=== PATIENT | female | born 1975 | race Caucasian/White ===

== ENCOUNTER 2020-08-10 18:04 | Emergency (ER) | payer SELFPAY ==
[2020-08-10] VITALS (7 sets, daily range): BP systolic 131–159; BP diastolic 94–123; PULSE 81–103; RESP 14–19; TEMP 36.6; O2SAT 96–100; BMI 31.2
--- NOTE | 2020-08-10 18:10 | XR_ITS ---
WS: [id number] Portable AP upright chest, 08/10/2020 Clinical Data: COUGH Comparison: PA and lateral chest, 07/02/2012. Findings: No nodules, masses or effusions are seen. The heart is normal. The pulmonary vascularity is not increased. No pneumonia or pneumothorax is seen. XR/XR chest 1V portable [id number] Impression: Negative chest.
--- NOTE | 2020-08-10 18:32 | ECG_ITS ---
[facility] Test Date: 2020-08-10 Pat Name: Martha Hdz Department: Room: Gender: Female [employer] Sh[employer] Helper: : 1975 Requested By: Erin Jones Order Number: [id number] Lopes MD: Cassia Baldwin M.D. Measurements Intervals [place] Rate: 96 P: 65 IL: 137 QRS: 46 QRSD: 85 T: 63 QT: 363 QTc: 459 Interpretive Statements SINUS RHYTHM No previous ECG available for comparison Electronically Signed On 08-11-2020 20:37:14 CDT by Cassia Baldwin M.D. [id number]
--- NOTE | 2020-08-10 18:34 | W.ED.GENADLT ---
HPI - General Adult General: Chief complaint: General Medical Stated complaint: cough *7 months Time Seen by Provider: 08/10/20 18:26 Source: patient Mode of arrival: ambulatory Limitations: no limitations History of Present Illness: HPI narrative: Mrs. Hdz is a very nice 45-year-old female who comes in complaining of cough that is been present for the past 7 months. She states most of the time the cough will be dry but she occasionally coughs up thick yellow mucus with this. She denies any hemoptysis. She has chest pain when she coughs. She states the past 3 months the cough is gotten worse and yesterday she coughed so hard that she dropped her grandson. Patient states that she feels postnasal drainage and her symptoms are worse at night. She denies any fevers or chills. There is been no leg swelling or edema. She denies any leg pain. Patient states at times she will cough so hard and have coughing fits she has little stinging pains in her chest. She otherwise denies any complaints or concerns. Patient denies any chronic past medical history but does admit to long-term ongoing smoking. He is never been told that she has emphysema or COPD. Associated symptoms: Reports dyspnea; Deny chest pain, confusion, diaphoresis, headache(s), malaise, nausea, rash, palpitations, syncope or vomiting Review of Systems Const: Denies: fever(s), chills, body aches, fatigue, malaise or diaphoresis Eyes: Denies: change in vision, blurry vision, photophobia, eye discomfort, eye discharge, eye redness or yellow eyes ENMT: Denies: throat pain, odynophagia, hoarseness, swelling of lips/tongue, ear or mastoid pain, ear discharge, change in hearing or nasal discharge Card: Denies: chest pain, palpitations, irregular heart rhythm, edema, lightheadedness, syncope, pre-syncope, dyspnea on exertion or orthopnea Resp: Reports: dyspnea, productive cough, non-productive cough, wheezing and chest congestion; Denies: hemoptysis GI: Denies: abdominal pain, nausea, vomiting, hematemesis, coffee ground emesis, heartburn, diarrhea, constipation, GI cramping, hematochezia or melena : Denies: flank pain, dysuria, urinary frequency, urinary urgency or hematuria Musc: Denies: neck pain, back pain, extremity pain, extremity swelling, joint pain, joint swelling, joint redness, joint warmth or joint stiffness Skin/Breast: Denies: rash, pruritus, erythema, skin pain or skin tenderness Neuro: Denies: headache(s), numbness in extremities, weakness in extremities, sensory changes, lack of coordination, difficulty walking, dizziness, vertigo, confusion, Slurred speech present or seizure-like activity Rk/Lymph: Denies: easy bruising, easy bleeding, petechiae, purpura or enlarged lymph nodes All/Imm: Denies: urticaria, throat swelling, tongue swelling, facial swelling or acute wheezing PFSH ED PFSH: Medical History (Updated 08/10/20 @ 20:28 by Erin Barrett) No pertinent past medical history Social History (Updated 08/10/20 @ 18:24 by Evan Romero RN) Smoking and tobacco status: light tobacco smoker Alcohol intake: never Physical Exam Const: COMMON NORMALS: no acute distress, patient oriented x3, no limitations and alert GENERAL APPEARANCE: cooperative HENMT: COMMON NORMALS: normocephalic, atraumatic, external ears normal, EAC's normal and Normal external nose present HEAD & SCALP: normal to inspection, normocephalic and atraumatic FACE & SINUS: normal facial exam and face symmetric NOSE: Normal external nose present and Normal nares present EXTERNAL EAR: Yes external ears normal EXTERNAL AUDITORY CANAL: EAC's normal MOUTH: Normal oral and palatal mucosa present, lip normal and tongue normal Eye: COMMON NORMALS: Equal, round and reactive pupils present and conjunctivae normal GENERAL EYE: appearance normal, both eyes and all related structures ALIGNMENT: Yes alignment normal PERIORBITAL: periorbital findings normal EYELID: eyelids normal CONJUNCTIVA: Yes conjunctivae normal SCLERA: sclerae normal PUPIL: Yes Equal, round and reactive pupils present Neck/C-Spine: COMMON NORMALS: full ROM, no lymphadenopathy, supple, no meningeal signs and no JVD GENERAL: Yes normal visual inspection and Yes trachea midline Chest: COMMONS NORMALS: normal inspection of the chest and normal palpation of entire chest wall Resp: COMMON NORMALS: normal respiratory effort, No retractions, No use of accessory muscles and clear to auscultation bilaterally EFFORT & INSPECTION: Yes able to speak in complete sentences and Yes symmetric chest movement AUSCULTATION: clear to auscultation bilaterally, no crackles, no rales, rhonchi and wheezes Cardio: COMMON NORMALS: no JVD, regular rate, regular rhythm, S1 normal heart sound present and S2 normal heart sound present RATE: regular rate RHYTHM: regular rhythm HEART SOUNDS: S1 normal heart sound present, S2 normal heart sound present, no click, no gallops, no murmurs and no rubs GI: COMMON NORMALS: Soft to palpation and No hepatosplenomegaly present PALPATION: Yes Soft to palpation, No Tenderness to palpation present (GI), No Guarding due to palpation present (GI), No Rigid due to palpation, Yes No hepatosplenomegaly present, No Hernia present, No Palpable mass present and No Pulsatile mass present : COMMON NORMALS: Yes no CVA tenderness BLADDER/KIDNEY EXAM: Yes no CVA tenderness EXTERNAL FEMALE EXAM: No Hernia present Back/Pelvis: COMMON NORMALS: no CVA tenderness, thoracic and lumbar spine normal to inspection, no thoracic nor lumbar tenderness and thoraco-lumbar ROM normal Extremity: COMMON NORMALS: normal to inspection, full ROM, capillary refill normal, no joint enlargement, no clubbing, cyanosis or edema and no calf tenderness Neuro: COMMON NORMALS: patient oriented x3, CN's II-XII intact bilaterally, moves all extremities, no focal motor deficits and no sensory deficits noted SENSORIUM/ORIENTATION: Yes alert MENINGEAL SIGNS: Yes no meningeal signs SPEECH: speech normal Psych: COMMON NORMALS: mental status grossly normal, Normal thought process present, cooperative, normal affect, speech normal and activity/motor behavior normal SPEECH: Yes normal speech THOUGHT PROCESS: Normal thought process present Skin: COMMON NORMALS: no rashes or lesions noted, turgor normal, no jaundice, no petechiae and no mottling GENERAL SKIN EXAM: no rashes or lesions noted and turgor normal Course Vital Signs: Vital signs: Vital Signs Temperature 97.9 F 08/10/20 18:18 Pulse Rate 81 08/10/20 20:22 Respiratory Rate 19 H 08/10/20 20:22 Blood Pressure 131/94 08/10/20 20:22 Pulse Oximetry 96 08/10/20 20:22 MDM - General Adult MDM Narrative: Medical decision making narrative: Martha is a nice 45-year-old female who comes in complaining of cough going on for the last 7 months. The last 3 months have been worse that she started smoking again and over the past few days her cough is become much worse. On exam she is wheezing but she is improved with breathing treatments. Chest x-ray suggest a very subtle haziness along the left heart border which could be a lingular pneumonia. Patient is not in distress and she is not hypoxic. I have advised her to stop smoking. She denies having other questions or concerns and agrees to follow-up with Dr. Lynch or establish a primary care doctor here in the area. Patient is really not allergic to penicillins as she is taken multiple rounds of penicillin since she was a child. I will go ahead and start her on Omnicef and doxycycline along with steroids and an inhaler. She agrees to return should her symptoms change or worsen. Lab Data: Labs: Lab Results 08/10/20 08/10/20 08/10/20 Range/Units 18:56 18:56 18:56 WBC 12.6 H (4.0-10.0) 10^3/ uL RBC 5.41 H (4.1-5.3) 10^6/u L Hgb 12.6 (11.5-15.3) g/dL Hct 40.6 (37.0-47.0) % MCV 75.0 L (81-99) fL MCH 23.3 L (28.0-34.0) pg MCHC 31.0 (30.0-36.0) g/dL RDW 17.8 H (12.1-15.1) % Plt Count 337 (130-400) 10^3/c mm MPV 10.1 (7.4-10.4) fL Neut % (Auto) 45.4 % Lymph % (Auto) 44.5 % Scott % (Auto) 7.1 % Eos % (Auto) 2.2 % Baso % (Auto) 0.6 % Neut # (Auto) 5.74 (1.8-7.7) 10^3/u L Lymph # (Auto) 5.6 H (0.8-4.8) 10^3/u L Scott # (Auto) 0.9 (0.2-0.9) 10^3/u L Eos # (Auto) 0.3 (0.0-0.8) 10^3/u L Baso # (Auto) 0.1 (0.0-0.1) 10^3/u L Nucleated RBC % (a uto) 0 % Nucleated RBCs # 0.0 /100WBC Sodium 134 L (136-145) mmol/L Potassium 3.8 (3.5-5.1) mmol/L Chloride 101 (98-107) mmol/L Carbon Dioxide 23 (22-29) mmol/L Anion Gap 13.8 (5-19) BUN 15 (6-20) mg/dL Creatinine 0.9 (0.5-0.9) mg/dL GFR Calculation 67.4 L (90-130) mL/min Glucose 97 (65-115) mg/dL Calculated Osmolal ity 279 L (285-295) mOsm/k g Calcium 9.9 (8.5-10.5) mg/dL Magnesium 2.3 (1.7-2.3) mg/dL Total Bilirubin 0.2 (0.15-1.2) mg/dL AST 15 (0-32) U/L ALT 11 (0-33) U/L Alkaline Phosphata se 72 (35-105) IU/L Troponin T Gen 5 n g/L 6 (0-10) ng/L NT-Pro-B Natriuret Pep 48 (0-125) pg/mL Total Protein 8.0 (6.6-8.7) g/dL Albumin 4.4 (3.5-5.2) g/dL Globulin 3.6 (1.3-4.6) g/dL Imaging Data^: CXR: Attestation: I personally reviewed and interpreted this imaging study as follows: My impression: Possible lingular infiltrate. EKG Data^: EKG 1: Attestation: I personally reviewed and interpreted this EKG as follows: EKG interpretation date: 08/10/20 EKG interpretation time: 19:02 Interpretation: Normal sinus rhythm at 96 beats a minute, normal axis, no blocks, normal intervals, no acute ST or T wave changes. Discharge Plan Discharge Patient Disposition: Home Clinical Impression: Pneumonia Qualifiers: Pneumonia type: due to unspecified organism Laterality: left Lung location: lower lobe of lung Qualified Code(s): J18.9 - Pneumonia, unspecified organism Condition: Stable Prescriptions: New doxycycline hyclate 100 mg capsule 100 mg PO BID 10 Days Qty: 20 RF: 0 prednisone 10 mg tablets,dose pack See Rx Instructions .ROUTE .COMPLEX Qty: 21 RF: 0 Tessalon Perles 100 mg capsule 200 mg PO TID PRN (Reason: cough) Qty: 60 RF: 0 cefdinir 300 mg capsule 300 mg PO Q12H 10 Days Qty: 20 RF: 0 No Action Tylenol PM Extra Strength 25-500 mg Tablet 1 tab PO Q6H PRN (Reason: pain/sleep) RF: 0 Discharge Orders: Discharge Order (Routine); Ordered 08/10/20 Ordered By: Erin Barrett Referrals: Tresa Lynch MD [Physician] - 4-7 days Discharge Diet: Advance as tolerated Discharge Activity: Increase activity as tolerated Patient Instructions: Pneumonia (ED) Activity Restrictions/Additional Instructions: Please return to the ER immediately for any of the signs or symptoms listed on your discharge instruction sheets, worsening/changing of your symptoms, you are not getting better as quickly as expected, or for ANY other cause or concerns. I see no evidence of cancer today but COPD can become disabling. Be certain to follow-up with Dr. Lynch as he may want to do more testing for your chronic ongoing lung problems. Coding Level of Care Code ED Professor Of Physics for [employer] Fwd Exam Comprehensive
[2020-08-10 19:04] LABS: Basophils # 0.1 10^3/uL (0.0-0.1); Basophils % 0.6 %; Eosinophils # 0.3 10^3/uL (0.0-0.8); Eosinophils % 2.2 %; Hematocrit 40.6 % (37.0-47.0); Hemoglobin 12.6 g/dL (11.5-15.3); Lymphocytes # 5.6 10^3/uL (0.8-4.8); Lymphocytes % 44.5 %; Mean Corpuscular Hemoglobin 23.3 pg (28.0-34.0); Mean Platelet Volume 10.1 fL (7.4-10.4); Monocytes # 0.9 10^3/uL (0.2-0.9); Monocytes % 7.1 %; Neutrophils # 5.74 10^3/uL (1.8-7.7); Neutrophils % 45.4 %; Nucleated Red Blood Cells % 0 %; Platelet Count 337 10^3/cmm (130-400); Red Blood Count 5.41 10^6/uL (4.1-5.3); Red Cell Distribution Width 17.8 % (12.1-15.1); White Blood Count 12.6 10^3/uL (4.0-10.0)
[2020-08-10] MEDS: ipratropium-albuterol 3 mL Neb 9 ML INHALATION (19:15)
[2020-08-10 19:23] LABS: Troponin T (5th) Once 6 ng/L (0-10)
[2020-08-10 19:33] LABS: Alanine Aminotransferase 11 U/L (0-33); Albumin Level 4.4 g/dL (3.5-5.2); Alkaline Phosphatase 72 IU/L (35-105); Anion Gap 13.8 (5-19); Aspartate Amino Transferase 15 U/L (0-32); Blood Urea Nitrogen 15 mg/dL (6-20); Calcium 9.9 mg/dL (8.5-10.5); Carbon Dioxide 23 mmol/L (22-29); Chloride 101 mmol/L (98-107); Globulin 3.6 g/dL (1.3-4.6); Glomerular Filtration Rate 67.4 mL/min (90-130); Glucose 97 mg/dL (65-115); Magnesium 2.3 mg/dL (1.7-2.3); NT Pro B Type Natriuretic Pept 48 pg/mL (0-125); Osmolality Calculated 279 mOsm/kg (285-295); Potassium 3.8 mmol/L (3.5-5.1); Sodium 134 mmol/L (136-145); Total Bilirubin 0.2 mg/dL (0.15-1.2)
[2020-08-10] MEDS: sodium chloride 0.9% 1,000 ML 999 ML IV (19:51)
[2020-08-10 20:19] LABS: Slide Review Slide Review Perform
[2020-08-10] MEDS: promethazine-cod syrup 6.25-10mg/5 mL UDC PO (20:27)
[2020-08-10] MEDS: doxycycline 100 mg Tablet 200 MG PO (20:27)
[2020-08-10] MEDS: predniSONE 20 mg Tablet 60 MG PO (20:27)
== END 2020-08-10 20:44 | disposition home or self-care (01) ==
PROVIDERS: Emergency Provider Emergency Medicine
DX: J18.9 Pneumonia, unspecified organism (principal); F17.210 Nicotine dependence, cigarettes, uncomplicated
CPT/HCPCS: 12345; 71045; 80053; 83735; 83880; 84484; 85025; 93005; 94640; 96361; 96374; 99282; 99284; J2930; J3535; J7030; J7512

== ENCOUNTER → 2023-02-11 14:33 | Outpatient (BNVA) | payer BC, MEDICAID, SELFPAY | PROVIDERS: PCP Nurse Practitioner Family; Visit Provider Physician Assistant | DX: M54.50 Low back pain, unspecified (principal); M54.2 Cervicalgia | CPT/HCPCS: 72050; 72110 ==

== ENCOUNTER → 2023-05-21 11:45 | Outpatient (BNVA) | payer BC, MEDICAID, SELFPAY | PROVIDERS: PCP Nurse Practitioner Family; Visit Provider Internal Medicine Pulmonary Disease | DX: R06.02 Shortness of breath (principal); M47.812 Spondylosis without myelopathy or radiculopathy, cervical region; M51.36 Other intervertebral disc degeneration, lumbar region; R07.9 Chest pain, unspecified; F17.200 Nicotine dependence, unspecified, uncomplicated | CPT/HCPCS: 71046 ==

== ENCOUNTER → 2023-10-08 08:23 | Outpatient (BNVA) | payer BC, MEDICAID, SELFPAY | PROVIDERS: PCP Nurse Practitioner Family; Visit Provider Internal Medicine Pulmonary Disease | DX: R06.02 Shortness of breath (principal); M79.604 Pain in right leg; M79.605 Pain in left leg; M47.812 Spondylosis without myelopathy or radiculopathy, cervical region; M51.36 Other intervertebral disc degeneration, lumbar region; F17.200 Nicotine dependence, unspecified, uncomplicated; Z82.49 Family history of ischemic heart disease and other diseases of the circulatory system | CPT/HCPCS: 36415; 80053; 82785; 85025; 85651; 86003; 86200; 86431 ==

== ENCOUNTER → 2024-07-30 08:09 | Outpatient (BNVA) | payer BC, MEDICAID, SELFPAY | PROVIDERS: PCP Nurse Practitioner Family; Visit Provider Nurse Practitioner | DX: M25.559 Pain in unspecified hip (principal) | CPT/HCPCS: 73523 ==